=== PATIENT | male | born 1970 | race Caucasian/White ===

== ENCOUNTER 2017-01-13 00:18 | Emergency (ER) | payer OTHER ==
[~2017-01-13] VITALS: Ht 180.3 cm; Wt 109.1 kg
[~2017-01-13 00:18] MED LIST: ALBU18HF INH; ARIP5TAB5 PO; GABA300C PO; LITH20CA PO; METH5TAB3 PO; MIRT30TA6 PO; OMEP40CA36 PO; OXYC5SOL11 PO; PRAZ1CAP2 PO; SERT20OR6 PO; TIZA4CAP8 PO; VENL225T3 PO; WARF7.5T4 PO
[2017-01-13 00:34] VITALS: BP 96/61; PULSE 42; RESP 20; O2SAT 100
--- NOTE | 2017-01-13 00:48 | ED.REPORT ---
HPI-General Illness Date of Service Jan 13, 2017 ED Provider: Mich Tolbert MD Pt is a 46 y.o. male with a hx of chronic back pain who presents to the ED c/o left knee pain onset yesterday. Pt states that he fell 6 times yesterday due to syncopal episodes and during one of those falls he hit his left knee. He reports associated swelling to the area, difficulty ambulating, and diarrhea. Denies nausea, vomiting, and head injury. Pt has a hx of chronic opiate use and has been taking Clonidine for withdrawals. He states that he is currently attempting to switch to Suboxone. He states that he has not taken Oxycodone or Methadone for the last 3 days. He has had fairly continuous diarrhea but no vomiting. He feels dry and dehydrated, and dizzy with upright posture. He had done well for many years on Suboxone, until that was arbitrarily discontinued by his pain clinic. He has been through periods on methadone and oxycodone, on which he has had dependency issues in the past. He is hoping to get into a Suboxone clinic at some point. In the meantime, as withdrawal symptoms are definitely improved by the clonidine, although he is having the associated dizziness. Nursing Notes Stated Complaint: DEHYDRATION/ L KNEE PAIN Chief Complaint: General Complaint Nursing Notes Reviewed: Yes Allergies: Coded Allergies: Sulfa (Sulfonamide Antibiotics) (Verified Allergy, Severe, swelling, ) Penicillins (Verified Allergy, Unknown, 06/10/15) Scheduled Aripiprazole (Abilify) 5 Mg Tablet 2.5 MG PO DAILY Gabapentin (Neurontin) 300 Mg Capsule 600 MG PO BID 2 tabs in the am 2 tabs in the pm [place] Aspartate (Lithate) 20 Mg Capsule 30 MG PO DAILY DAILY X 5 THEN BID Loperamide (Loperamide) 2 Mg Capsule 2 MG PO Q4H Methadone (Methadone) 5 Mg Tablet 5 MG PO TID Mirtazapine (Mirtazapine) 30 Mg Tablet 30 MG PO HS Omeprazole (Omeprazole) 40 Mg Capsule.dr 40 MG PO DAILY Prazosin (Prazosin) 1 Mg Capsule 3 MG PO HS Sertraline HCl (Sertraline) 20 Mg/1 Ml Oral.conc 75 MG PO DAILY TAPERING OFF Tizanidine (Tizanidine) 4 Mg Capsule 4 MG PO BID Venlafaxine ER (Venlafaxine ER) 225 Mg Tab.er.24 225 MG PO DAILY Warfarin Sodium (Warfarin Sodium) 7.5 Mg Tablet 5 MG PO DAILY Scheduled PRN Albuterol Sulfate (Ventolin HFA Inhaler) 200 Puff/18 Gm Inhaler 2 PUFF INH Q4 PRN PRN For Wheezing Clonidine (Clonidine) 0.2 Mg Tablet 0.2 MG PO TID PRN PRN Withdrawal Symptoms oxyCODONE (oxyCODONE) 5 Mg/5 Ml Solution 15 MG PO Q6HRS PRN PRN For Pain General Time Seen by MD: 00:48 Chief Complaint Other (Left lower extremity pain, knee) Hx Obtained From: Patient Arrived By: Walk-in Sudden in Onset?: Yes Onset Occurred: Yesterday Symptom Duration: Since onset Caused by: Fall on ground (6) Context: Occurred at: Home injury Location: : Knee left Quality: Painful Severity: Current: Moderate Past Medical History Past Medical History Chronic back pain with opiate dependence Reports: COPD, GERD Past Surgical History Reports: Back/neck surgery Smoking History Current Every Day Smoker Social History Drug Use: In recovery Ambulatory Status Cane Review of Systems Full Review of Systems GI: Reports: Diarrhea, Denies: Nausea, Vomiting Musculoskeletal: Reports: Extremity pain (Left knee), Extremity swelling (Left knee) Neurologic: Reports: Syncope Complete sys rev & neg: except as marked. Physical Exam Vital Signs Vital Signs Date Time Temp Pulse Resp B/P Pulse Ox O2 Delivery O2 Flow Rate FiO2 01/13/17 07:00 58 18 128/81 98 Room Air 01/13/17 04:17 36.6 58 18 116/72 98 Room Air 01/13/17 00:34 36.7 42 20 96/61 100 Room Air Initial VS: Reviewed Abdomen / GI: No distention Extremities: Vascular intact, Neuro intact Skin: Warm, Dry, No cyanosis Neurologic: Alert, Oriented, Nonfocal Psychiatric: Mood/affect normal, Behavior normal, Normal thought content General/Constitutional: Awake, Alert, No acute distress, Well appearing, Well developed, Well hydrated, Well nourished, Not toxic appearing Head / Eyes: Atraumatic, Normocephalic, PERRL Respiratory / Chest: Atraumatic, Breath sounds NL, Breath sounds = bilat, No respiratory distress Cardiovascular: Heart rate NL, Regular rhythm, Heart sounds NL, Cap refill not delayed, Peripheral circulation NL Lower Extremity / Pelvis / MS: No deformity, Neurologic intact, Vascular intact Lower Extremities Normals: Knee R exam normal Left Knee: Positive: Ecchymosis present, Tenderness present... (to palpation on both joint lines, lateral and medial), Negative: Joint effusion present, Swelling present... Trauma / Burn / Environmental: Positive: Abrasion (to left knee) Interpretation & Diagnostics Lab Results Interpretation Result Diagram: 01/13/17 0135 01/13/17 0135 Test 01/13/17 01:35 White Blood Count 9.8th/mm3 (3.8-10.1) Red Blood Count 4.23mil/mm3 (4.40-5.80) Hemoglobin 13.0g/dL (13.8-17.2) Hematocrit 40.8% (41.0-50.0) Mean Corpuscular Volume 96.5fL (81-100) Mean Corpuscular Hemoglobin 30.7pg (27.0-35.0) Mean Corpuscular Hemoglobin Concent 31.9% (32.0-37.0) Red Cell Distribution Width 13.7% (12.3-15.4) Platelet Count 70bil/L (150-400) Neutrophils (%) (Auto) 55.0% (40-74) Lymphocytes (%) (Auto) 34.3% (14-46) Monocytes (%) (Auto) 5.6% (4-12) Eosinophils (%) (Auto) 4.3% (0-5) Basophils (%) (Auto) 0.6% (0-3) Prothrombin Time 26.1sec (8.1-12.5) Prothromb Time International Ratio 2.40ratio Sodium Level 139mEq/L (134-144) Potassium Level 3.5mEq/L (3.5-5.2) Chloride Level 104mEq/L (97-108) Carbon Dioxide Level 22mmol/L (18-29) Blood Urea Nitrogen 9mg/dL (6-24) Creatinine 1.24mg/dL (0.76-1.27) Estimat Glomerular Filtration Rate 67mL/min (>59) Glucose Level 92mg/dL (60-99) Calcium Level 9.2mg/dL (8.5-10.1) Magnesium Level 2.1mg/dL (1.6-2.6) Total Bilirubin 0.4mg/dL (0.0-1.2) Aspartate Amino Transf (AST/SGOT) 27U/L (0-50) Alanine Aminotransferase (ALT/SGPT) 27U/L (0-44) Alkaline Phosphatase 94U/L (25-150) Troponin T < 0.010ug/L (0.0-0.011) Total Protein 7.0g/dL (6.4-8.4) Albumin 4.2g/dL (3.4-5.0) Hold Theodore Top Tube Received (Received) ECG Interpretation Time: 01:17 Interpreted by: ED physician Normal ECG Interpretation: Normal rate (62), Normal sinus rhythm, No acute ischemic changes X-Ray Chest Interpretation Chest Xray Interpretation: IMPRESSION: No acute cardiopulmonary disease. Interpretation / Wet Read by: Wet read ED physician X-Ray Interpretation Xray Interpretation: IMPRESSION: No fracture X-Ray Ordered: Knee left Interpretation / Wet Read by: Wet read ED physician Interpretation: Normal exam, No fracture/dislocation Re-Eval/Medical Decision Med Decision/Clinical Course Rose Rios with chronic opioid dependency presents in withdrawal with orthostatic hypotension and dehydration. He is much improved after 3 L of fluid here. Continue clonidine as tolerated. Continue loperamide for diarrhea, which she has not been taking as directed. Continue Zofran if needed for nausea. [facility] at [facility] Suboxone therapy. Source of Hx: Old records Counseled Regarding: Diagnosis, Lab results, Need for follow-up, When/why to return to ED Discharge & Departure Shift Change Sign-Out Response to Therapy: Improved Primary Impression: Multiple falls Additional Impressions: Opioid withdrawal Orthostatic hypotension Dehydration Discharge Condition All VS Reviewed: Yes Condition: Improved Referrals: Vivian Hamm MD (PCP) Raulito Attestation Portions of this note were transcribed by Chantell Pelaez. I, Dr. Tolbert personally performed the history, physical exam and medical decision-making; I reviewed and confirmed the accuracy of the information in the transcribed note. Signed by: Raulito Potts, 01/13/17 and 0603. copies to: Vivian Hamm MD; Juanjo Velasquez MD, Christopher W MD Jan 13, 2017 00:48 CHANTELL PELAEZ Jan 13, 2017 00:55
[2017-01-13] MEDS ORDERED: 0.9% Sodium Chloride 1,000 ML IV ONE (00:54)
[2017-01-13] MEDS ORDERED: 0.9% Sodium Chloride 1,000 ML IV SCH (00:55)
[2017-01-13 01:52] LABS: BASOPHILS % (AUTO) 0.6 % (0-3); EOSINOPHILS % (AUTO) 4.3 % (0-5); MONOCYTES % (AUTO) 5.6 % (4-12); Mean Corpuscular Hemoglobin 30.7 pg (27.0-35.0); Mean Corpuscular Volume 96.5 fL (81-100); Platelet Count 70 bil/L (150-400)
[2017-01-13 02:12] LABS: INR 2.4 ratio
[2017-01-13 02:31] LABS: Magnesium 2.1 mg/dL (1.6-2.6)
[2017-01-13 02:32] LABS: TROPONIN T < 0.010 ug/L (0.0-0.011)
[2017-01-13 04:17] VITALS: BP 116/72; PULSE 58; RESP 18; O2SAT 98
[2017-01-13] MEDS ORDERED: LOPE2CAP PO (06:16)
[2017-01-13] MEDS ORDERED: CLON0.2T PO (06:16)
--- NOTE | 2017-01-13 06:54 | DRSVH ---
PROCEDURE: CT BRAIN WITHOUT CONTRAST ([id number]) INDICATIONS: falls, anticoagulated TECHNIQUE: Noncontrast 4.5 mm thick angled axial sections acquired from the foramen magnum to the vertex, with c oronal reformats. COMPARISON: None. FINDINGS: Image quality: Excellent. CSF spaces: Basal cisterns are patent. No extra-axial fluid collections. Ventricles are normal in size and shape. Brain: No midline shift. No intracranial masses or hemorrhage. Bryan-white matter interface is norm al. Skull and face: Calvarium and visualized facial bones are intact, without suspicious lesions. Sinuses: Partial right mastoid effusion. Ethmoid air cell and right maxillary sinus mucosal thickenin g. Otherwise partially visualized frontal sinuses and mastoid air cells are clear. IMPRESSION: 1. No CT evidence of acute cranial pathology. 2. There are no discrepancies with the preliminary report. Dictated by: Levy Levi M.D. on 01/13/2017 at 6:50 Approved by: Levy Levi M.D. on 01/13/2017 at 6:53
[2017-01-13 07:00] VITALS: BP 128/81; PULSE 58; RESP 18; O2SAT 98
--- NOTE | 2017-01-13 09:18 | DRSVH ---
PROCEDURE: X-RAY LEFT KNEE, THREE VIEWS ([id number]) INDICATIONS: falls, syncope TECHNIQUE: 3 views of the knee were acquired. COMPARISON: None. FINDINGS: Bones: No fractures or dislocations. No suspicious bony lesions. Soft tissues: No joint effusion. No suspicious soft tissue calcifications. Mild anterior medial kn ee soft tissue swelling. IMPRESSION: No displaced fracture seen. If there is continued pain, followup exam or additional melanie ging such as MRI or CT could be performed for further assessment. Dictated by: James Hwang [facility] Interpreted: Levy Levi MD on 01/13/2017 at 9:17 Transcribed by: JOLLY on 01/13/2017 at 9:18 Approved by: Levy Levi M.D. on 01/13/2017 at 9:47
--- NOTE | 2017-01-13 09:20 | DRSVH ---
PROCEDURE: X-RAY CHEST ONE VIEW, PORTABLE ([id number]) INDICATIONS: falls, syncope TECHNIQUE: One view of the chest was acquired. COMPARISON: [facility], CT, CHEST ANGIO-PE, 01/22/2014, 22:34. [facility], C R, CHEST 1VW (PORTABLE), 01/22/2014, 21:21. FINDINGS: Surgical changes and devices: None. Lungs and pleura: No pleural effusions or pneumothorax. Lungs are clear, aside from small nodular o pacity projected over the left lung base.. Mediastinum: Mediastinal contours appear normal. Heart size is normal. Bones and chest wall: No suspicious bony lesions. Overlying soft tissues appear unremarkable. Wide rekha of the right acromioclavicular joint redemonstrated likely postsurgical. IMPRESSION: Small nodular opacity projected over the left lung base which likely represents a summati on shadow of overlying structures but a small nodule cannot be excluded. When clinically feasible re commend 2 view chest radiograph for further assessment. No acute cardiopulmonary process identified. Dictated by: James Hwang [employer] Interpreted: Levy Levi MD on 01/13/2017 at 9:18 Transcribed by: JOLLY on 01/13/2017 at 9:19 Approved by: Levy Levi M.D. on 01/13/2017 at 9:48
== END 2017-01-13 06:56 | disposition home or self-care (01) ==
LOC: SED 00:18
DX: F11.23 Opioid dependence with withdrawal (principal); I95.1 Orthostatic hypotension; E86.0 Dehydration; R19.7 Diarrhea, unspecified; M25.562 Pain in left knee; W19.XXXA Unspecified fall, initial encounter; Y93.9 Activity, unspecified; Y92.9 Unspecified place or not applicable; Y99.8 Other external cause status; J44.9 Chronic obstructive pulmonary disease, unspecified; K21.9 Gastro-esophageal reflux disease without esophagitis; G89.29 Other chronic pain; Z79.01 Long term (current) use of anticoagulants; F17.200 Nicotine dependence, unspecified, uncomplicated; Z88.0 Allergy status to penicillin; Z88.2 Allergy status to sulfonamides
CPT/HCPCS: 36415; 70450; 71010; 73562; 80053; 83735; 84484; 85025; 85610; 93005; 96360; 96361; 99285; J7030